=== PATIENT | female | born 1955 | race Two or more races ===

== ENCOUNTER 2020-12-14 05:54 | Inpatient (IN) | payer MEDICAID ==
[2020-11-28 11:51] LABS: BASOPHILS % (AUTO) 0.7 % (0.0-2.0); EOSINOPHILS % (AUTO) 2.6 % (0.0-3.0); HEMATOCRIT 43.6 % (37.0-47.0); LYMPHOCYTES % (AUTO) 31.1 % (20.0-45.0); MEAN CORPUSCULAR VOLUME 95 FL (80-99); MONOCYTES % (AUTO) 7.4 % (1.0-10.0); NEUTROPHILS % (AUTO) 58.2 % (45.0-75.0); PLATELET COUNT 293 K/UL (150-450); RED BLOOD COUNT 4.57 M/UL (4.20-5.40); RED CELL DISTRIBUTION WIDTH 11.9 % (11.6-14.8); WHITE BLOOD COUNT 6.6 K/UL (4.8-10.8)
[2020-11-28 11:53] LABS: APPEARANCE,URINE SLIGHTLY CLOUDY; BILIRUBIN, URINE NEGATIVE (NEGATIVE); COLOR,URINE PALE YELLOW; GLUCOSE, URINE (UA) NEGATIVE (NEGATIVE); KETONES,URINE NEGATIVE (NEGATIVE); LEUKOCYTE ESTERASE ,URINE 3+ (NEGATIVE); NITRITE,URINE NEGATIVE (NEGATIVE); PH,URINE 8 (4.5-8.0); PROTEIN,URINE 1+ (NEGATIVE); UROBILINOGEN,URINE NORMAL MG/DL (0.0-1.0)
[2020-11-28 12:01] LABS: ANION GAP 6 mmol/L (5-15); BLOOD UREA NITROGEN 14 mg/dL (7-18); CALCIUM 9.5 MG/DL (8.5-10.1); CARBON DIOXIDE 30 MMOL/L (21-32); CHLORIDE 103 MMOL/L (98-107); CREATININE 0.7 MG/DL (0.55-1.30); POTASSIUM 4.8 MMOL/L (3.5-5.1); SODIUM 139 MMOL/L (136-145)
--- NOTE | 2020-11-28 12:30 | Pre-op HX & Phy Repo 2 SIG ---
DATE OF ADMISSION: 11/30/2020 DATE OF SURGERY: Scheduled for surgery, November 30, 2020. HISTORY OF PRESENT ILLNESS: The patient is a 65-year-old female in overall stable health with invasive ductal carcinoma of the left breast. The patient underwent imaging studies and in the left breast at 12 o'clock, 2 cm from the nipple, there is a 1.5 cm mass on mammogram and on ultrasound 1.3 x 1.1 x 0.8 cm. Core biopsy revealed invasive ductal carcinoma, estrogen and progesterone receptor positive, Ki-67 8%, HER2 equivocal. Based on discussions with her oncologist, she felt that surgery as a primary treatment should be performed even if the final HER2 marker is positive. The patient has no prior history of breast disease and no family history of breast cancer. PAST MEDICAL HISTORY/MEDICATIONS: She takes oral medications for diabetes, depression and hypertension. ALLERGIES: None. OPERATIONS: section, hernia repair, knee surgery. REVIEW OF SYSTEMS: 3, para 3, menopausal for 20 years. PHYSICAL EXAMINATION: VITAL SIGNS: The patient is 5 feet, 157 pounds. Vital signs are stable. HEENT: Within normal limits. LUNGS: Clear. HEART: Regular rhythm. BREASTS: Large and ptotic. Right breast unremarkable. Left breast has a palpable mass at 12 o'clock between the areola and the periphery closer to the areolar border. There is no palpable axillary or supraclavicular lymphadenopathy. ABDOMEN: Soft. PELVIC AND RECTAL: Per primary care. EXTREMITIES: Without edema. NEUROLOGIC: Physiologic. IMPRESSION: Invasive ductal carcinoma, left breast. PLAN: Left breast partial mastectomy and left axillary lymph node biopsy. I have had a full discussion with the patient regarding the nature of her condition, the nature of the surgery, indications, alternatives, options, and risks including bleeding, infection, scarring or distortion of her breast or nipple, need for additional treatment including additional surgery, chemotherapy, endocrine therapy, radiation therapy based on final pathology. All questions have been answered. She understands and agrees to proceed. Doyle Galicia M.D. DR: JODIE/CARMELA JOB#: [id number] CC:
--- NOTE | 2020-11-28 14:13 | Diagnostic Imaging Report ---
Indication: Shortness of breath Technique: 2 views of the chest Comparison: None Findings: Lungs and pleural spaces are clear. The heart size is normal. The bones are unremarkable. There are degenerative changes of the thoracic spine Impression: No acute process
--- NOTE | 2020-12-13 18:29 | Pre-op HX & Phy Repo 2 SIG ---
DATE OF ADMISSION: 12/14/2020 Scheduled for surgery on December 14, 2020. HISTORY OF PRESENT ILLNESS: The patient is a 65-year-old female in stable health, with invasive ductal carcinoma of the left breast. She presented recently with a left breast mass at 12 o'clock 2 cm from the nipple measuring 1.3 x 1.1 x 0.8 cm. Core biopsy revealed invasive ductal carcinoma, estrogen and progesterone receptor positive, HER2 equivocal, Ki-67, 8%. She has no prior history of breast disease. No family history of breast cancer. She had been scheduled for surgery several weeks ago, but tested COVID-positive, but was asymptomatic. Repeat testing shows her to be COVID-negative at this time. MEDICATIONS: She takes oral medications for diabetes, depression, and hypertension. ALLERGIES: None. OPERATIONS: section, hernia repair, knee surgery. REVIEW OF SYSTEMS: 6, para 3. She is menopausal for 20 years. PHYSICAL EXAMINATION: GENERAL: The patient is 5 foot, 157 pounds. VITAL SIGNS: Stable. HEENT: Within normal limits. LUNGS: Clear. HEART: Regular rhythm. BREASTS: Large and ptotic, the right breast unremarkable. The left breast has a palpable 1 x 2 cm mass at 12 o'clock above the areolar border. There is no palpable axillary, supraclavicular lymphadenopathy. ABDOMEN: Soft. PELVIC AND RECTAL: Per primary care. EXTREMITIES: Without edema. NEUROLOGIC: Physiologic. IMPRESSION: Invasive ductal carcinoma, left breast. PLAN: Left breast partial mastectomy and left axillary lymph node biopsy. DISCUSSION: I have had a full discussion with her oncologist about proceeding with her surgery, and I have had a full discussion with the patient regarding the surgery including indications, alternatives, options, and risks including bleeding, infection, distortion of the breast or nipple, need for additional treatment including surgery, chemotherapy, endocrine therapy, radiation therapy based on final pathology. All questions have been answered. The patient understands and agrees to proceed. Doyle Galicia M.D. DR: WILL JOB#: [id number] CC:
[~2020-12-14] VITALS: Ht 144.8 cm; Wt 70.3 kg
[2020-12-14] VITALS (13 sets, daily range): BP systolic 105–137; BP diastolic 65–79
[~2020-12-14 05:54] MED LIST: ASPIRIN81 MG ORAL; BENAZEPRIL HCL40 MG ORAL; FLUOXETINE HCL10 M2 ORAL; GLIMEPIRIDE1 MG ORAL; HYDROCHLOROTHIA25 MG ORAL; JANUVIA100 MG ORAL; METFORMIN HCL500 M1 ORAL
[2020-12-14] MEDS ORDERED: NeoSporin Gu Irrig 1ml Amp IRRIG ONE (07:04)
[2020-12-14] MEDS ORDERED: Bacitracin 50000 Units Vial ONE (07:04)
[2020-12-14] MEDS ORDERED: NS Irrig 1000ml IRRIG ONE ×2 (07:07→08:20)
[2020-12-14] MEDS ORDERED: Rocuronium Bromide 50mg/5ml Inj IV ONE (07:19)
[2020-12-14] MEDS ORDERED: Succinylcholine 20mg/ml 10ml vial ONE (07:19)
[2020-12-14] MEDS ORDERED: fentaNYL 100 mcg/2 mL IV ONE (07:25)
[2020-12-14] MEDS ORDERED: Midazolam 2mg/2ml Inj ONE (07:25)
[2020-12-14] MEDS ORDERED: Lidocaine 1% MPF 10mg/ml 5ml ONE (07:29)
--- NOTE | 2020-12-14 07:44 | Anethesia Preoperative Eval ---
Anesthesia Pre-op PMH/ROS General Date of Evaluation: Dec 14, 2020 Time of Evaluation: 07:40 Anesthesiologist: Carley ASA Score: ASA 2 Mallampati Score Class I : Soft palate, uvula, fauces, pillars visible Class II: Soft palate, uvula, fauces visible Class III: Soft palate, base of uvula visible Class IV: Only hard plate visible Mallampati Classification: Class II Surgeon: Frida Diagnosis: L breast CA Surgical Procedure: Mastectomy Anesthesia History: none Family History: no anesthesia problems Allergies: Coded Allergies: No Known Allergies (Unverified , 12/14/20) Medications: see eMAR Patient NPO?: Yes Past Medical History Cardiovascular: Reports: HTN; Denies: CAD, MS, valve dz, arrhythmia, other Pulmonary: Denies: asthma, COPD, MONO, other Gastrointestinal/Genitourinary: Reports: GERD; Denies: CRI, ESRD, other Neurologic/Psychiatric: Reports: depression/anxiety; Denies: dementia, CVA, TIA, other Endocrine: Reports: DM; Denies: hypothyroidism, steroids, other HEENT: Denies: cataract (L), cataract (R), glaucoma, HOPI (L), HOPI (R), other Hematology/Immune: Denies: anemia, DVT, bleeding disorder, other Musculoskeletal/Integumentary: Reports: OA; Denies: RA, DJD, DDD, edema, other Other: obesity PMH Narrative: as above PSxH Narrative: x 3, hernia repair, knee Sx. Anesthesia Pre-op Phys. Exam Physician Exam Last Vital Signs Date Time Temp Pulse Resp B/P (MAP) Pulse Ox O2 Delivery O2 Flow Rate FiO2 12/14/20 06:24 Room Air 12/14/20 06:22 97.0 69 18 137/72 100 Constitutional: NAD Neurologic: CN 2-12 intact Cardiovascular: RRR, no M/R/G Respiratory: CTA Gastrointestinal: S/NT/ND Airway Exam Mallampati Score: Class II MO: limited Neck: short ROM: limited Teeth: missing Dentures: no upper, no lower Anesthesia Pre-op A/P Studies Pre-op Studies: EKG - SR Risk Assessment & Plan Assessment: ASA 2 Plan: GA with ETT Status Change Before Surgery: No Pre-Antibiotics Drug: Ancef 1gr Given Within 1 Hr of Incision: Yes Mark Howe MD Dec 14, 2020 07:44
--- NOTE | 2020-12-14 07:52 | Pre-Procedure Note/Attestation ---
Pre-Procedure Note/Attestation Complete Prior to Procedure Planned Procedure: left Procedure Narrative: left breast partial mastectomy and left axillary lymph node biopsy Indications for Procedure Pre-Operative Diagnosis: invasive ductal carcinoma left breast Attestation I attest that I discussed the nature of the procedure; its benefits; risks and complications; and alternatives (and the risks and benefits of such alternatives), prior to the procedure, with the patient (or the patient's legal manufacturers service representative). I attest that, if there was a reasonable possibility of needing a blood transfusion, the patient (or the patient's legal manufacturers service representative) was given the [facility] standardized written summary, pursuant to the Richard Toña Blood Safety Act ([place] Health and Safety Code # 1645, as amended). I attest that I re-evaluated the patient just prior to the surgery and that there has been no change in the patient's H&P, except as documented below: none Doyle Galicia MD Dec 14, 2020 07:52
[2020-12-14] MEDS ORDERED: LR 1000ml 1,000 ML IVLG SCH (08:00)
[2020-12-14] MEDS ORDERED: DiphenhydrAMINE 50mg/ml Inj IVP PRN (08:00)
[2020-12-14] MEDS ORDERED: LR 1000ml ONE (08:00)
[2020-12-14] MEDS ORDERED: Ketorolac 30mg Inj IV PRN (08:00)
[2020-12-14] MEDS ORDERED: NS Irrig 1000ml ONE (08:00)
[2020-12-14] MEDS ORDERED: Acetaminophen (Non formulary) 100 ML IV ONE (08:00)
[2020-12-14] MEDS ORDERED: Hydromorphone 0.5mg/0.5ml inj IVP PRN (08:00)
[2020-12-14] MEDS ORDERED: Sterile Water Irrig 1000ml IRRIG ONE (08:00)
[2020-12-14] MEDS ORDERED: Glycopyrrolate 0.2mg/ml 1ml Vial ONE (08:39)
[2020-12-14] MEDS ORDERED: Neostigmine 1mg/ml 10ml Inj ONE (08:39)
--- NOTE | 2020-12-14 09:49 | Brief Operative Note ---
Immediate Post Operative Note Operative Note Pre-op Diagnosis: invasive ductal carcinoma left breast Procedure: left breast partial mastectomy and left axillary lymph node biopsy Post-op Diagnosis: same Post-op Diagnosis: same as pre-op Findings: consistent w/pre-op dx studies Surgeon: charles Anesthesiologist: avni Anesthesia: general Specimen: yes - left breast tissue and left axillary lymph node Complications: none Condition: stable Fluids: see anesthesia record Estimated Blood Loss: minimal Drains: KULDEEP Implant(s) used?: No Doyle Galicia MD Dec 14, 2020 09:49
--- NOTE | 2020-12-14 09:58 | Immediate Post-Op Evaluation ---
Immediate Post-Op Evalulation Immediate Post-Op Evalulation Procedure: L breast partial mastectomy with axillary l/n dissection Date of Evaluation: Dec 14, 2020 Time of Evaluation: 09:57 IV Fluids: 600 Blood Products: none Estimated Blood Loss: 50 Urinary Output: none Blood Pressure Systolic: 128 Blood Pressure Diastolic: 74 Pulse Rate: 72 Respiratory Rate: 18 O2 Sat by Pulse Oximetry: 99 Temperature (Fahrenheit): 97.6 Pain Score (1-10): 1 Nausea: No Vomiting: No Complications none Patient Status: reacts, patent, extubated, none Hydration Status: adequate Mark Howe MD Dec 14, 2020 09:58
[2020-12-14] MEDS ORDERED: Metoclopramide 10mg/2ml Inj IVP PRN (10:00)
[2020-12-14] MEDS ORDERED: HYDROmorphone 1mg/ml Carpuject SUBQ PRN (10:00)
[2020-12-14] MEDS ORDERED: HYDROcodone/Acetamin 5/325 tab ORAL PRN (10:00)
--- NOTE | 2020-12-14 10:29 | Operative Note - Dictated ---
DATE OF OPERATION: 12/14/2020 SURGEON: Doyle Galicia MD. SLAG EXPANDER: None. ANESTHESIOLOGIST: Mark Howe MD. TYPE OF ANESTHESIA: General. PREOPERATIVE DIAGNOSIS: Invasive ductal carcinoma, left breast. POSTOPERATIVE DIAGNOSIS: Invasive ductal carcinoma, left breast. OPERATION PERFORMED: Left breast partial mastectomy and left axillary lymph node biopsy. DESCRIPTION OF PROCEDURE: The patient was taken to the operating room and under general anesthesia with sequential compression device stockings in place, she was prepped and draped in usual fashion. The lesion was at 12 o'clock just above the areolar border approximately 1.5 cm. A curvilinear incision was made overlying the mass and flaps dissected circumferentially. A partial mastectomy was accomplished utilizing cautery for hemostasis. The specimen was oriented with suture markers anterior, superior, and medial. Inspection of the tissue by pathology indicated additional medial-inferior margin needed to be taken. This was resected again using the cautery for hemostasis. The field was irrigated with sterile water and then antibiotic solution and hemostasis carefully achieved with cautery. Incision was closed with interrupted 2-0 Vicryl deep dermal subcutaneous sutures followed by continuous 4-0 Monocryl subcuticular suture. A vertical left axillary incision was made achieving hemostasis with cautery and incising the clavipectoral fascia. An obvious enlarged lymph node was identified and was resected including a lower level dissection using the Thunderbeat vessel sealing electrosurgical device. The field was irrigated with water, followed by antibiotic solution, and hemostasis carefully achieved. Through a separate stab incision inferolaterally, a 19 mm round Ghulam drain was placed into the axilla and sutured to the skin with 2-0 nylon skin suture. After ascertaining the hemostasis was secured, the clavipectoral fascia was closed with interrupted 2-0 Vicryl. Subcutaneous tissues closed with interrupted 3-0 Vicryl and the skin closed with continuous 4-0 Monocryl subcuticular suture. Tincture of benzoin and half-inch Steri-Strips were applied to both incisions followed by dry sterile dressings. The pathologist confirmed the presence of lymph node in the axillary specimen. The patient tolerated the procedure well and left the operating room in good condition. Doyle Galicia M.D. DR: Malia JOB#: [id number] CC:
--- NOTE | 2020-12-14 11:25 | NUR ---
NURSE NOTES: Received pt from PACU via hospital bed and report from MICHAEL De La Vega. Pt awake but drowsy, alert and oriented, Syriac speaking. Breathing even and unlabored on NC 2L. All belongings were checked with patient. Vital signs stable. Pt no c/o pain at this time. IV on right hand 20g intact and patent. Surgical dressing clean, dry and intact. Noted with KULDEEP on L breast compressed no output draining. Skin intact. Oriented pt to hospital and room. Bed in low position and locked. Call light within reach. Will continue to monitor.
[2020-12-14] MEDS: D5 1/2NS w/KCl 20mEq 1,000 ML IV SCH (14:00)
[2020-12-14] MEDS: ceFAZolin sod 1 GM in D5W 55 ML IV SCH ×2 (15:44→23:14)
--- NOTE | 2020-12-14 16:24 | NUR ---
NURSE NOTES: Pt's brought Glimepiride medication to use pt's own med. Med sent to pharmacy. #[id number]
--- NOTE | 2020-12-14 16:50 | NUR ---
NURSE NOTES: pt ambulated to bathroom and voided. No dizziness , no c/o pain or discomfort.
[2020-12-14] MEDS: metFORMIN 500mg tab ORAL SCH (17:29)
--- NOTE | 2020-12-14 18:00 | NUR ---
NURSE NOTES: Pt tolerated pain well, no N/V, no KULDEEP output during day shift. IS at bed side, educated pt how to use IS, pt able to do IS properly.
--- NOTE | 2020-12-14 19:05 | NUR ---
NURSE NOTES: Received report from MICHAEL Sanchez. Pt is calm, VSS, call light within reach, bed in lowest position. Pt is ambulatory with a steady gait. IVF infusing well. Will continue to monitor.
--- NOTE | 2020-12-14 19:29 | NUR ---
NURSE HAND-OFF: Important Events on Shift:[No output from KULDEEP, tolerating pain well, VSS, able to use IS, Voiding well, ambulating OK] Patient Status: [stable] Diet: [CCHO medium] Pending Orders: [] Pending Results/Labs:[] Pending MD notification:[] Latest Vital Signs: Temperature 97.6 , Pulse 78 , B/P 111 /65 , Respiratory Rate 19 , O2 SAT 95 , Nasal Cannula, O2 Flow Rate 2 . Vital Sign Comment: [stable] Latest Barker Fall Score: 35 Fall Risk: Medium Risk Safety Measures: Call light , Bed Alarm , Side Rails , Bed position . Fall Precautions: Report given to [MICHAEL Neal].
[2020-12-15] VITALS: BP 124/66
[2020-12-15] MEDS: D5 1/2NS w/KCl 20mEq 1,000 ML IV SCH (03:39)
[2020-12-15 04:00] VITALS: BP 121/63
[2020-12-15] MEDS ORDERED: GLIMEPIRIDE 2 MG ORAL SCH (06:30)
--- NOTE | 2020-12-15 07:43 | NUR ---
NURSE HAND-OFF: Important Events on Shift: KULDEEP 5ml output Patient Status: calm Diet: ccho medium Pending Orders: Pending Results/Labs: Pending MD notification: Latest Vital Signs: Temperature 97.2 , Pulse 70 , B/P 121 /63 , Respiratory Rate 20 , O2 SAT 95 , Nasal Cannula, O2 Flow Rate 2 . Vital Sign Comment: VSS Latest Barker Fall Score: 35 Fall Risk: Medium Risk Safety Measures: Call light Within Reach, Bed Alarm , Side Rails Side Rails x2, Bed position Low and Locked. Fall Precautions: Patient Fall Education Report given to MICHAEL Zepeda.
--- NOTE | 2020-12-15 07:44 | NUR ---
NURSE NOTES: Received report from MICHAEL Neal. Rounding done with outgoing nurse. Pt a/o x 4, having breakfast. No SOB noted. Denies any pain at this time. SCD is on. Rt hand IV access is patent. D51/2NS + KCl 20meq running @75ml/hr. Surgical dressing is dry/intact. Bed in lowest position, call light within reach. Will continue to monitor.
[2020-12-15 08:00] VITALS: BP 138/76
[2020-12-15] MEDS: metFORMIN 500mg tab ORAL SCH (08:45)
[2020-12-15] MEDS ORDERED: FLUoxetine 10mg cap ORAL SCH (09:00)
[2020-12-15] MEDS ORDERED: hydroCHLOROthiazide 25mg cap ORAL SCH (09:00)
--- NOTE | 2020-12-15 09:08 | 48 Hour Post Anesthesia Eval ---
Post Anesthesia Evaluation Procedure: L breast partial mastectomy with axillary l/n dissection Date of Evaluation: Dec 15, 2020 Time of Evaluation: 09:06 Blood Pressure Systolic: 136 0: 74 Pulse Rate: 68 Respiratory Rate: 22 Temperature (Fahrenheit): 97.6 O2 Sat by Pulse Oximetry: 98 Airway: patent Nausea: No Vomiting: No Pain Intensity: 2 Hydration Status: adequate Cardiopulmonary Status: stable Mental Status/LOC: patient returned to baseline Follow-up Care/Observations: n/a Post-Anesthesia Complications: none Follow-up care needed: ready to discharge Mark Howe MD Dec 15, 2020 09:08
--- NOTE | 2020-12-15 10:00 | NUR ---
NURSE NOTES: Instruction for emptying J/P and recording amount was given by MICHAEL Jackson. Pt verbalized understanding.
--- NOTE | 2020-12-15 11:00 | NUR ---
NURSE NOTES: Pt demonstrated emptying J/P well.
--- NOTE | 2020-12-15 11:03 | General Progress Note ---
Progress Note Progress Note AVSS Pain yesterday now comfortable Left breast and axilla incisions clean with intact steristrips KULDEEP 5cc overnight serosang Imp: Stable Plan: RN to instruct patient re drain care/recording output Discharge Rx none Instructions/limitations/supplies discussed/provided F/U office 12/20/20 Doyle Galicia MD Dec 15, 2020 11:03
--- NOTE | 2020-12-15 11:34 | NUR ---
NURSE NOTES: Called Dr. Galicia to reconcile medication. Dr. Galicia ordered continue all home medication including aspirin.
[2020-12-15 12:00] VITALS: BP 132/80
--- NOTE | 2020-12-15 12:11 | NUR ---
CASE MANAGEMENT:REVIEW 65 YR OLD FEMALE HERE FOR ELECTIVE SURGERY SI: LEFT BREAST CARCINOMA 97.0 69 18 137/72 100% ON RA IS: TO SURGERY FOR: LT BREAST PARTIAL MASTECTOMY IV ANCEF Q8HRS : TO MED/SURG 12/15/20 DISCHARGE HOME
--- NOTE | 2020-12-15 12:50 | NUR ---
NURSE NOTES: Discharge instruction was given. Home medication was given. Dressing supplies and measuring cup were given. Recording paper was given. IV/ID band removed. Pt discharged in stable condition.
--- NOTE | 2020-12-19 12:26 | Discharge Summary ---
Discharge Summary Discharge Summary _ Date of admission: 12/14/2020 Date of discharge: 12/15/[address] Galicia History of Present Illness and Brief Hospital Course Ms. Bryan Adams is a 65-year-old female with past medical history of diabetes mellitus, depression, and hypertension, who presented to the hospital for a scheduled surgery on 12/14/2020. Previously, patient underwent imaging studies which revealed a 1.5 cm mass on mammogram in the left breast at 12 o'clock, 2 cm from the nipple. A follow-up ultrasound of the breast revealed the mass to be 1.3 x 1.1 x 0.8 cm in size. Core biopsy revealed invasive ductal carcinoma, estrogen and progesterone receptor positive, Ki67 8%, H ER2 equivocal. Based on discussions with her oncologist, she felt that surgery is a primary treatment even if the final HER2 marker was positive. Patient did not have any history of breast disease or family history of breast cancer. The surgery for left breast partial mastectomy and left axillary lymph node biopsy were scheduled for 12/14/2020. On 12/14/2020, patient presented to the hospital and was taken to operating room and underwent surgery. The patient tolerated the procedure well and left the operating room in good condition. The details of the operation are described in operative notes by Dr. Galicia. The pathology report revealed that the b iopsied margins of left breast tissue was negative for invasive ductal carcinoma and tumor associated ductal carcinoma in situ, and the left axillary lymph nodes were negative for metastatic carcinoma. Patient was closely monitored post surgery and was trained on emptying KULDEEP drain. Patient was medically stable for discharge and was discharged on 12/15/2020. Patient was instructed to follow-up with Dr. Galicia in his office on 12/20/2020. Consultants: None Discharge Condition Stable Final diagnoses s/p left breast partial mastectomy, and left axillary lymph node biopsy I have been assigned to dictate discharge summary for this account. I was not involved in the patient's management Yosef Ramsay Dec 19, 2020 12:26
== END 2020-12-15 12:50 | disposition home or self-care (01) | DRG 363 ==
LOC: SUR 05:54 → 4E 12:49 → 3E 13:24 → 4E 13:29
PROC: 07T60ZZ Resection of Left Axillary Lymphatic, Open Approach (ICD-10-PCS; 2020-12-14)
PROC: 0HBU0ZZ Excision of Left Breast, Open Approach (ICD-10-PCS; principal; 2020-12-14 08:00)
DX: C50.812 Malignant neoplasm of overlapping sites of left female breast (principal); Z17.0 Estrogen receptor positive status [ER+]; E11.9 Type 2 diabetes mellitus without complications; F32.9 Major depressive disorder, single episode, unspecified; I10 Essential (primary) hypertension
CPT/HCPCS: 36415; 71046; 80048; 81001; 85025; 85610; 85730; 93005; 94003; 94150; J2250; J2710